=== PATIENT | female | born 1945 | race Caucasian/White ===

== ENCOUNTER 2019-09-03 10:52 | Outpatient (CLI) | payer MEDICARE, OTHER, SELFPAY ==
[2019-09-03 11:58] LABS: Add Urine Microscopic? YES; Appearance Urine Clear (Clear); Bilirubin Urine Negative (Negative); Blood Urine Negative (Negative); Color Urine Amber (Yellow); Glucose Urine UA 3+ mg/dL (Negative); Ketones Urine Negative (Negative); Leukocyte Esterase Ur Negative LEU/UL (Negative); Mucus Urine Rare /lpf; Nitrate Urine Positive (Negative); Protein Urine Negative (Negative); RBC Urine 0-2 /hpf (0-2); Specific Grav Ur 1.012 (1.001-1.035); Squamous Epithelial Cell Urine Few /hpf (Few)
== END 2019-09-03 10:53 | disposition home or self-care (01) ==
PROVIDERS: PCP Internal Medicine; Visit Provider Internal Medicine
DX: R30.0 Dysuria (principal)
CPT/HCPCS: 81001

== ENCOUNTER 2020-02-05 07:28 | Outpatient (CLI) | payer MEDICARE, OTHER, SELFPAY ==
[2020-02-05 08:08] LABS: Hemoglobin A1C 8.4 % (<5.7)
[2020-02-05 08:13] LABS: Alanine Aminotransferase 23 U/L (4-35); Alkaline Phosphatase 101 U/L (38-126); Anion Gap 9.2 mmol/L (7-16); Aspartate Amino Transferase 20 U/L (14-36); Bilirubin,Total 0.5 mg/dL (0.2-1.3); Blood Urea Nitrogen 15 mg/dL (7-17); Calcium 8.7 mg/dL (8.4-10.2); Carbon Dioxide 28 mmol/L (22-30); Chloride 105 mmol/L (98-107); Cholesterol 142 mg/dL (0-200); Estimated Glomerular Filt Rate > 60; Glucose 190 mg/dL (65-105); HDL Direct 44 mg/dL; Potassium 4.2 mmol/L (3.4-5.0); Sodium 138 mmol/L (137-145); Triglycerides 193 mg/dL (<150)
[2020-02-05 08:23] LABS: LDL Cholesterol Direct 65 mg/dL
[2020-02-05 08:45] LABS: Creatinine Urine 121.8 mg/dL
[2020-02-05 08:50] LABS: MALB Creatinine Ratio 17.6 mg/g (0-30); Microalbumin Urine Random 21.4 mg/L (0-16.7)
== END 2020-02-05 07:29 | disposition home or self-care (01) ==
LOC: ANHLAB 07:30
PROVIDERS: PCP Internal Medicine; Visit Provider Internal Medicine
DX: I10 Essential (primary) hypertension (principal); Z79.899 Other long term (current) drug therapy; E11.9 Type 2 diabetes mellitus without complications; Z79.4 Long term (current) use of insulin; E78.5 Hyperlipidemia, unspecified
CPT/HCPCS: 36415; 80053; 80061; 82043; 83036

== ENCOUNTER 2020-03-04 07:28 | Outpatient (CLI) | payer MEDICARE, OTHER, SELFPAY ==
--- NOTE | 2020-03-04 07:37 | ECHO_ITS ---
Patient Info Name: Eva Dupont Age: 75 years : 1945 Gender: Female Ht: 64 in Wt: 187 lbs BSA: 1.99 m2 HR: 85 bpm BP: 156 / 81 mmHg Heart Rhythm: Sinus Rhythm Technical Quality: Good Exam Date: 03/04/2020 7:49 AM Exam Location: [facility] Patient Status: Outpatient Admit Date: 03/04/2020 Staff Ordering Physician: Rambo Duarte DO Bobbin Painter: Óscar Carreon RDCS Attending Provider: Rambo Duarte DO Referring Physician: Felicia ONEIL; Exam Type: CA echo doppler color flow Study Info Indications 458.0 - Orthostatic hypotension Complete two-dimensional, color flow and Doppler transthoracic echocardiogram is performed. History/Risk Factors Orthostatic hypotension; murmur,. Summary 1. Complete two-dimensional, color flow and Doppler transthoracic echocardiogram is performed. 2. Left ventricular chamber dimension is normal. 3. Left ventricular systolic function is normal, estimated at 60-65%. 4. The left ventricular diastolic function is grade I diastolic dysfunction. 5. E/e' 7 is not elevated. 6. Right ventricular chamber dimension is mildly enlarged. Left Ventricle E/e' 7 is not elevated. Left ventricular chamber dimension is normal. Left ventricular systolic function is normal, estimated at 60-65%. The left ventricular diastolic function is grade I diastolic dysfunction. Right Ventricle Right ventricular chamber dimension is mildly enlarged. Right ventricular systolic function is normal. Left Atria Left atrial chamber dimension is normal. Right Atria Right atrial chamber dimension is normal. Aortic Valve The aortic valve is trileaflet. There is no aortic valve stenosis. There is no aortic valve regurgitation. Pulmonic Valve The pulmonic valve is not well visualized. There is no pulmonic regurgitation. Mitral Valve There is no mitral valve stenosis. There is no mitral valve regurgitation. Tricuspid Valve There is no tricuspid valve regurgitation. Pericardium/Pleural There is no pericardial effusion. Aorta The aortic root size at the sinus of Valsalva is normal. Left Ventricular Outflow Tract Name Value Normal LVOT 2D LVOT Diameter 2.1 cm LVOT Doppler LVOT Peak Gradient 2 mmHg LVOT Mean Gradient 1 mmHg LVOT VTI 18 cm LVOT VTI/AV VTI Ratio 0.8 LVOT Stroke Volume 61 ml LVOT CO 4.4 l/min LVOT CI 2.2 l/min/m2 Mitral Valve Name Value Normal MV Doppler MV Decel [place] 195 cm/s2 MV PHT 85 ms MV Area (PHT) 2.6 cm2 4.0-5.0 MV Diastolic Function
== END 2020-03-04 07:29 | disposition home or self-care (01) ==
LOC: ANHCARD 07:31
PROVIDERS: PCP Internal Medicine; Visit Provider Internal Medicine
DX: I95.1 Orthostatic hypotension (principal); R10.11 Right upper quadrant pain; I51.7 Cardiomegaly
CPT/HCPCS: 93306

== ENCOUNTER 2020-07-14 07:51 | Outpatient (CLI) | payer MEDICARE, OTHER, SELFPAY ==
[2020-07-14 08:27] LABS: Alanine Aminotransferase 22 U/L (4-35); Albumin Level 3.9 g/dL (3.5-5.1); Alkaline Phosphatase 83 U/L (38-126); Anion Gap 2 mmol/L (8-16); Aspartate Amino Transferase 21 U/L (14-36); Bilirubin,Total 0.6 mg/dL (0.2-1.3); Blood Urea Nitrogen 14 mg/dL (7-17); Calcium 8.7 mg/dL (8.4-10.2); Carbon Dioxide 31 mmol/L (22-30); Chloride 106 mmol/L (98-107); Cholesterol 149 mg/dL (0-200); Estimated Glomerular Filt Rate > 60; Glucose 130 mg/dL (65-105); HDL Direct 47 mg/dL; Potassium 4.1 mmol/L (3.4-5.0); Sodium 139 mmol/L (137-145); Triglycerides 226 mg/dL (<150)
[2020-07-14 08:38] LABS: LDL Cholesterol Direct 60 mg/dL
== END 2020-07-14 07:52 | disposition home or self-care (01) ==
PROVIDERS: PCP Internal Medicine; Visit Provider Internal Medicine
DX: E11.9 Type 2 diabetes mellitus without complications (principal); Z51.81 Encounter for therapeutic drug level monitoring; I10 Essential (primary) hypertension; Z79.4 Long term (current) use of insulin; E78.5 Hyperlipidemia, unspecified
CPT/HCPCS: 36415; 80053; 80061; 83036

== ENCOUNTER 2020-12-01 06:57 | Outpatient (CLI) | payer MEDICARE, SELFPAY ==
[2020-12-01 08:03] LABS: Alanine Aminotransferase 23 U/L (4-35); Albumin Level 4.3 g/dL (3.5-5.1); Alkaline Phosphatase 93 U/L (38-126); Anion Gap 8 mmol/L (8-16); Aspartate Amino Transferase 23 U/L (14-36); Bilirubin,Total 0.6 mg/dL (0.2-1.3); Blood Urea Nitrogen 15 mg/dL (7-17); Calcium 9.5 mg/dL (8.4-10.2); Carbon Dioxide 28 mmol/L (22-30); Chloride 104 mmol/L (98-107); Cholesterol 161 mg/dL (0-200); Estimated Glomerular Filt Rate > 60; Glucose 178 mg/dL (65-105); HDL Direct 49 mg/dL; Potassium 4.2 mmol/L (3.4-5.0); Sodium 140 mmol/L (137-145); Triglycerides 162 mg/dL (<150)
[2020-12-01 08:05] LABS: Hemoglobin A1C 8.1 % (<5.7)
[2020-12-01 08:14] LABS: LDL Cholesterol Direct 67 mg/dL
== END 2020-12-01 06:58 | disposition home or self-care (01) ==
PROVIDERS: PCP Internal Medicine; Visit Provider Nurse Practitioner
DX: E78.5 Hyperlipidemia, unspecified (principal); E11.9 Type 2 diabetes mellitus without complications; Z51.81 Encounter for therapeutic drug level monitoring; Z79.4 Long term (current) use of insulin
CPT/HCPCS: 36415; 80053; 80061; 83036

== ENCOUNTER 2021-06-02 07:07 | Outpatient (CLI) | payer MEDICARE, SELFPAY ==
[2021-06-02 08:02] LABS: Alanine Aminotransferase 24 U/L (4-35); Albumin Level 4.1 g/dL (3.5-5.1); Alkaline Phosphatase 92 U/L (38-126); Anion Gap 8 mmol/L (8-16); Aspartate Amino Transferase 23 U/L (14-36); Bilirubin,Total 0.6 mg/dL (0.2-1.3); Blood Urea Nitrogen 13 mg/dL (7-17); Calcium 9.3 mg/dL (8.4-10.2); Carbon Dioxide 27 mmol/L (22-30); Chloride 107 mmol/L (98-107); Cholesterol 141 mg/dL (0-200); Estimated Glomerular Filt Rate > 60; Glucose 136 mg/dL (65-110); HDL Direct 53 mg/dL; Potassium 4.3 mmol/L (3.4-5.0); Sodium 142 mmol/L (137-145); Triglycerides 175 mg/dL (<150)
[2021-06-02 08:13] LABS: LDL Cholesterol Direct 57 mg/dL
== END 2021-06-02 07:08 | disposition home or self-care (01) ==
PROVIDERS: PCP Internal Medicine; Visit Provider Nurse Practitioner
DX: E11.9 Type 2 diabetes mellitus without complications (principal); Z51.81 Encounter for therapeutic drug level monitoring; Z79.4 Long term (current) use of insulin; E78.2 Mixed hyperlipidemia
CPT/HCPCS: 36415; 80053; 80061; 83036

== ENCOUNTER → 2021-07-26 07:57 | Outpatient (CLI) | payer MEDICARE, SELFPAY ==
[2021-07-26 13:29] LABS: Influenza A QL RT-PCR Negative (Negative); Influenza B QL RT-PCR Negative (Negative); SARS-CoV-2 RNA PCR Negative
== END ==
PROVIDERS: PCP Internal Medicine; Visit Provider Internal Medicine
DX: R68.89 Other general symptoms and signs (principal); Z20.822 Contact with and (suspected) exposure to COVID-19
CPT/HCPCS: 87502; C9803; U0003; U0005

== ENCOUNTER 2021-10-13 07:00 | Outpatient (CLI) | payer MEDICARE, SELFPAY ==
[2021-10-13 07:45] LABS: Alanine Aminotransferase 20 U/L (4-35); Albumin Level 4.2 g/dL (3.5-5.1); Alkaline Phosphatase 91 U/L (38-126); Anion Gap 4 mmol/L (8-16); Aspartate Amino Transferase 22 U/L (14-36); Bilirubin,Total 0.5 mg/dL (0.2-1.3); Blood Urea Nitrogen 14 mg/dL (7-17); Calcium 8.8 mg/dL (8.4-10.2); Carbon Dioxide 27 mmol/L (22-30); Chloride 106 mmol/L (98-107); Cholesterol 161 mg/dL (0-200); Estimated Glomerular Filt Rate > 60; Glucose 137 mg/dL (65-110); HDL Direct 48 mg/dL; Potassium 4.2 mmol/L (3.4-5.0); Sodium 137 mmol/L (137-145); Triglycerides 150 mg/dL (<150)
[2021-10-13 07:48] LABS: Creatinine Urine 133.7 mg/dL
[2021-10-13 07:52] LABS: Hemoglobin A1C 7.2 % (<5.7)
[2021-10-13 07:54] LABS: MALB Creatinine Ratio 18.7 mg/g (0-30)
[2021-10-13 07:55] LABS: LDL Cholesterol Direct 66 mg/dL
== END 2021-10-13 07:01 | disposition home or self-care (01) ==
LOC: ANHLAB 07:02
PROVIDERS: PCP Internal Medicine; Visit Provider Internal Medicine
DX: E11.9 Type 2 diabetes mellitus without complications (principal); Z79.4 Long term (current) use of insulin; Z79.899 Other long term (current) drug therapy; I10 Essential (primary) hypertension; E78.5 Hyperlipidemia, unspecified
CPT/HCPCS: 36415; 80053; 80061; 82043; 83036

== ENCOUNTER 2022-04-20 07:10 | Outpatient (CLI) | payer MEDICARE, SELFPAY ==
[2022-04-20 08:15] LABS: Alanine Aminotransferase 32 U/L (6-35); Albumin Level 4.3 g/dL (3.5-5.1); Alkaline Phosphatase 95 U/L (38-126); Anion Gap 6 mmol/L (8-16); Aspartate Amino Transferase 26 U/L (14-36); Bilirubin,Total 0.6 mg/dL (0.2-1.3); Blood Urea Nitrogen 16 mg/dL (7-17); Carbon Dioxide 28 mmol/L (22-30); Chloride 105 mmol/L (98-107); Cholesterol 157 mg/dL (0-200); Estimated Glomerular Filt Rate > 60; Glucose 160 mg/dL (65-110); HDL Direct 53 mg/dL; Sodium 139 mmol/L (137-145); Triglycerides 184 mg/dL (<150)
[2022-04-20 08:26] LABS: LDL Cholesterol Direct 67 mg/dL
[2022-04-20 08:53] LABS: Hemoglobin A1C 8.3 % (<5.7)
== END 2022-04-20 07:11 | disposition home or self-care (01) ==
LOC: ANHLAB 07:13
PROVIDERS: PCP Internal Medicine; Visit Provider Internal Medicine
DX: I10 Essential (primary) hypertension (principal); E78.5 Hyperlipidemia, unspecified; E11.9 Type 2 diabetes mellitus without complications; Z79.899 Other long term (current) drug therapy; Z79.4 Long term (current) use of insulin
CPT/HCPCS: 36415; 80053; 80061; 83036

== ENCOUNTER 2022-10-27 06:53 | Outpatient (CLI) | payer MEDICARE, SELFPAY ==
[2022-10-27 07:39] LABS: Alanine Aminotransferase 26 U/L (6-35); Albumin Level 4.3 g/dL (3.5-5.1); Alkaline Phosphatase 92 U/L (38-126); Anion Gap 5 mmol/L (8-16); Aspartate Amino Transferase 22 U/L (14-36); Bilirubin,Total 0.7 mg/dL (0.2-1.3); Blood Urea Nitrogen 15 mg/dL (7-17); Calcium 8.7 mg/dL (8.4-10.2); Carbon Dioxide 29 mmol/L (22-30); Chloride 104 mmol/L (98-107); Cholesterol 139 mg/dL (0-200); Estimated Glomerular Filt Rate > 60; Glucose 136 mg/dL (65-110); HDL Direct 43 mg/dL; Potassium 4.1 mmol/L (3.4-5.0); Sodium 138 mmol/L (137-145); Triglycerides 188 mg/dL (<150)
[2022-10-27 07:43] LABS: Hemoglobin A1C 7.7 % (<5.7)
[2022-10-27 07:50] LABS: LDL Cholesterol Direct 56 mg/dL
== END 2022-10-27 06:54 | disposition home or self-care (01) ==
PROVIDERS: PCP Internal Medicine; Visit Provider Nurse Practitioner
DX: E78.5 Hyperlipidemia, unspecified (principal); E11.9 Type 2 diabetes mellitus without complications
CPT/HCPCS: 36415; 80053; 80061; 83036

== ENCOUNTER 2022-12-26 14:24 | Outpatient (CLI) | payer MEDICARE, SELFPAY ==
--- NOTE | ~2022-12-26 | DEXA_ITS ---
Bone Density Report Name: YOSVANY STARK Age: 77 Sex: Female Ethnicity: White Date of : 1945 Indication: osteopenia; parental hip fracture; hysterectomy; postmenopausal Referring Provider: DUANE STANLEY Study: Bone densitometry was performed. Exam Date: December 26, 2022 Accession number: [id number] Bone Density: Region BMD T-score Z-score Classification AP Spine(L1-L4) 0.962 -0.8 1.7 Normal Femoral Neck (Left) 0.567 -2.5 -0.4 Osteoporosis Total Hip (Left) 0.859 -0.7 1.2 Normal Femoral Neck (Right) 0.673 -1.6 0.6 Osteopenia Total Hip (Right) 0.891 -0.4 1.5 Normal Total Hip Mean 0.875 -0.6 1.4 Normal World Health Organization criteria for BMD impression classify patients as: Normal (T-score at or above -1.0), Osteopenia (T-score between -1.0 and -2.5), or Osteoporosis (T-score at or below -2.5). 10-year Fracture Risk: FRAX not reported because: Some T-score for Spine Total or Hip Total or Femoral Neck at or below -2.5 Previous Exams: Region Exam Age BMD T-score BMD Change BMD Change Date g/cm2 vs Baseline vs Previous AP Spine (L1-L4) 12/26/2022 77 0.962 -0.8 0.051 (5.6%)* 0.051 (5.6%)* 11/10/2014 69 0.911 -1.2 Total Hip(Left) 12/26/2022 77 0.859 -0.7 -0.049 (-5.4%) -0.049 (-5.4%) 11/10/2014 69 0.908 -0.3 Total Hip(Right) 12/26/2022 77 0.891 -0.4 -0.007 (-0.7%) -0.007 (-0.7%) 11/10/2014 69 0.897 -0.4 *Denotes significance at 95% confidence level, LSC for AP Spine = 0.022 g/cm2, LSC for Total Hip = 0.027 g/cm2 Clinical Information Provided by Patient: Parent has had a hip fracture Has the following medical conditions: Hysterectomy Patient maximum height was 64 Menopause Age: 41 No regular weight bearing exercise Onset of menses at age 15 Number of children 4 Impression: The patient has osteoporosis, based on the Left Femoral Neck T-score. The patient has risk factors, including: parental hip fracture. The BMD for the Total Hip(Left) decreased, changing by -5.4% since the last DXA exam. Discussion: INCREASED RISK OF FRACTURE. BONE DENSITY IS UNDESIRABLY LOW AT ONE OR MORE SKELETAL SITES, CONSISTENT WITH POSTMENOPAUSAL OSTEOPOROSIS. This patient's lowest T-score meets the World Health Organization's (WHO) criteria for osteoporosis at one or more sites (T-score -2.5 or below). In untreated patients, the risk of osteoporotic fracture increases approximately two-fold for each 1.0 SD decrease in T-score.
== END 2022-12-26 14:25 | disposition home or self-care (01) ==
LOC: ANHIMG 14:25
PROVIDERS: PCP Family Medicine; Visit Provider Family Medicine
DX: Z78.0 Asymptomatic menopausal state (principal); M81.0 Age-related osteoporosis without current pathological fracture; M85.851 Other specified disorders of bone density and structure, right thigh
CPT/HCPCS: 77080

== ENCOUNTER 2023-03-02 06:47 | Outpatient (CLI) | payer MEDICARE, SELFPAY ==
[2023-03-02 08:03] LABS: Alanine Aminotransferase 26 U/L (6-35); Albumin Level 4.2 g/dL (3.5-5.1); Alkaline Phosphatase 92 U/L (38-126); Anion Gap 5 mmol/L (8-16); Aspartate Amino Transferase 25 U/L (14-36); Bilirubin,Total 0.6 mg/dL (0.2-1.3); Blood Urea Nitrogen 15 mg/dL (7-17); Calcium 9.1 mg/dL (8.4-10.2); Carbon Dioxide 28 mmol/L (22-30); Chloride 105 mmol/L (98-107); Cholesterol 149 mg/dL (0-200); Estimated Glomerular Filt Rate > 60; Glucose 138 mg/dL (65-110); HDL Direct 46 mg/dL; Potassium 4.4 mmol/L (3.4-5.0); Sodium 138 mmol/L (137-145); Triglycerides 173 mg/dL (<150)
[2023-03-02 08:13] LABS: Hemoglobin A1C 7.5 % (<5.7)
[2023-03-02 08:15] LABS: LDL Cholesterol Direct 69 mg/dL
== END 2023-03-02 06:48 | disposition home or self-care (01) ==
PROVIDERS: PCP Nurse Practitioner; Visit Provider Nurse Practitioner
DX: E11.9 Type 2 diabetes mellitus without complications (principal); E78.5 Hyperlipidemia, unspecified
CPT/HCPCS: 36415; 80053; 80061; 83036

== ENCOUNTER 2023-03-23 15:55 | Outpatient (CLI) | payer MEDICARE, SELFPAY ==
--- NOTE | ~2023-03-23 | US_ITS ---
EXAMINATION: US carotid duplex BI DATE: 03/23/2023 17:08 INDICATION: Vision abnormalities. Vertigo. TECHNIQUE: Grayscale, color Doppler, and pulsed Doppler images of the cervical carotid arteries were obtained. The degree of vessel stenosis is placed in one of the following categories: normal, <50%, 5 0-69%, >=70% but less than near-occlusion, near-occlusion, or total occlusion. Note that percent sten osis relative to normal distal artery lumen diameter is indirectly measured from velocity measurement s as described by You, et al. Radiology 2003; 229:340-346. Notes: Normal: Peak systolic velocity <125 centimeters/sec and no plaque <50%. Peak systolic velocity <125 ( EDV <40; ICA/CCA PSV ratio <2.0; used these factors only a tandem lesions or low cardiac output or co ntralateral disease) 50-69 %: PSV 125-230 (EDV 40-100; ratio 2-4) >= 70% but less than near occlusion: PSV greater than 230 (EDV > 100; ratio> 4.0) Near Occlusion: PSV that is variable; markedly narrowed lumen Occlusion: Absent flow on color/spectral Doppler and no lumen on burton scale. COMPARISON: Ultrasound dated 09/21/2016 FINDINGS: RIGHT: The right common carotid artery (CCA) peak systolic velocity (PSV) is 76 cm/s. The right internal car otid artery (ICA) PSV is 94 cm/s. The right ICA end-diastolic velocity (EDV) is 22 cm/s. The right IC A/CCA PSV ratio is 1.2. The external carotid artery (ECA) PSV is 107 cm/s. There is antegrade flow in the right vertebral artery. LEFT: The left CCA PSV is 88 cm/s. The left ICA PSV is 103 cm/s. The left ICA EDV is 27 cm/s. The left ICA/ CCA PSV ratio is 1.2. The ECA PSV is 110 cm/s. There is antegrade flow in the left vertebral artery. IMPRESSION: 1. Less than 50% stenosis in the right internal carotid artery by sonographic criteria. 2. Less than 50% stenosis in the left internal carotid artery by sonographic criteria. Reviewed, dictated and finalized at location A. IMPRESSION: 1. Less than 50% stenosis in the right internal carotid artery by sonographic sammy trammell. 2. Less than 50% stenosis in the left internal carotid artery by sonographic haja omalley.
== END 2023-03-23 15:56 | disposition home or self-care (01) ==
PROVIDERS: PCP Family Medicine; Visit Provider Nurse Practitioner
DX: R09.89 Other specified symptoms and signs involving the circulatory and respiratory systems (principal); I65.23 Occlusion and stenosis of bilateral carotid arteries
CPT/HCPCS: 93880

== ENCOUNTER 2023-09-06 07:24 | Outpatient (CLI) | payer MEDICARE, SELFPAY ==
[2023-09-06 08:19] LABS: Alanine Aminotransferase 27 U/L (6-35); Albumin Level 4.1 g/dL (3.5-5.1); Alkaline Phosphatase 99 U/L (38-126); Anion Gap 2 mmol/L (8-16); Aspartate Amino Transferase 24 U/L (14-36); Bilirubin,Total 0.7 mg/dL (0.2-1.3); Blood Urea Nitrogen 16 mg/dL (7-17); Calcium 9.2 mg/dL (8.4-10.2); Carbon Dioxide 30 mmol/L (22-30); Chloride 106 mmol/L (98-107); Cholesterol 148 mg/dL (0-200); Estimated Glomerular Filt Rate > 60; Glucose 193 mg/dL (65-110); HDL Direct 47 mg/dL; Potassium 4.2 mmol/L (3.4-5.0); Sodium 138 mmol/L (137-145); Triglycerides 191 mg/dL (<150)
[2023-09-06 08:30] LABS: LDL Cholesterol Direct 74 mg/dL
[2023-09-06 09:34] LABS: Hemoglobin A1C 8.3 % (<5.7)
== END 2023-09-06 07:25 | disposition home or self-care (01) ==
LOC: ANHLAB 07:26
PROVIDERS: PCP Family Medicine; Visit Provider Nurse Practitioner
DX: E78.5 Hyperlipidemia, unspecified (principal); E11.9 Type 2 diabetes mellitus without complications
CPT/HCPCS: 36415; 80053; 80061; 83036

== ENCOUNTER 2023-11-15 11:00 | Outpatient (RCR) | payer MEDICARE, SELFPAY ==
--- NOTE | 2023-10-23 16:41 | OPREHPOC ---
Outpatient Therapy Plan of Care This is a Multidisciplinary Plan of Care that may contain components documented by all disciplines (PT, OT, and ST.) PT Problem 1 PT Problem #1 Knowledge Deficit PT Goal 1 Goal Pt will perform HEPs indep Target Visit 2 PT Problem 2 PT Problem #2 Pain PT Goal 1 Goal Pt will report pain rating of 1-2 at worst when performing standing and ambulation tasks. Target Visit 8 PT Problem 3 PT Problem #3 Impaired Strength PT Goal 1 Goal Pt will demonstrate 5/5 strength to BLE to improve safe mobility. Target Visit 8 PT Problem 4 PT Problem #4 Impaired Balance PT Goal 1 Goal Pt will demonstrate a score of 21/28 or more for the Tinetti Balance and Gait assessment to reduce risk for falls. Target Visit 8
--- NOTE | 2023-10-23 16:41 | PTOPEVAL1 ---
Assessment and note entered by Radha Juarez, PT Evaluation Information Assessment Status Evaluation Diagnosis L knee pain Onset Approx 6 months ago Subjective Information pt c/o feeling tightness to L knee increased with prolonged standing and walking, states starting to utilize rollator for walking since 2022. Rest, theraworks and tylenol for pain relief. States received cortisone shot on the L knee last week; no significant difference in pain before and after the injection. Reports feeling unstable on the knee feeling like it would buckle . Reported Pain Level Pain Score 5: Self Report Assessment PT Clinical Summary Pt presents with decreased mobility and impaired gait, difficulty with ambulation on uneven surfaces and stairs due to reports of pain to L knee which started approx 6 months ago, 2022. Reports needing to use the rollator when walking long distances. Skilled PT necessary to reduce pain and improve mobility and reduce risk for falls. Plan of Care Interventions Electrical Stimulation,Gait Training,Hot Pack/Cold Pack,Intermittent Compression,Patient/Caregiver Education,Therapeutic Activities,Therapeutic Exercise,Ultrasound PT Services Indicated Yes Treatment Frequency and 2x/week for 8 visits Duration These treatments will address the objective and functional deficits as defined above. The patient will be advanced safely and appropriately in order for the patient to progress towards his/her prior level of function. Additional exercises will be introduced and as well as a comprehensive home exercise program upon discharge, if needed, ?to ensure carryover of functional gains achieved in the clinic. This treatment plan has been reviewed and agreement upon by the patient.
--- NOTE | 2023-11-03 11:15 | PCPTNOTE ---
Patient called & cancelled scheduled appointment this date due to personal reasons. Will continue per POC.
--- NOTE | 2023-12-13 15:52 | PTOPDC ---
Assessment and note entered by Radha Juarez, PT Discharge Information Assessment Status Discharge - Pt Not Presen Diagnosis L knee Pain Onset Approx 6 months ago Subjective Information Pt reports feeling less to no pain today, slight dull ache to L knee with sit to stand transitions. States when she is tired , she feels the pain more. reports compliant with HEPs. Reported Pain Level Pain Score 0: Self Report Additional Pain Score Comments Pt denies any pain at rest, may have some discomfort when standing and walking but not as much as it used to be. Assessment PT Clinical Summary Pt reports significant improvement with pain intensity and mobility since participating in therapy. States she feels like she can continue doing the HEPs at home and be more mindful of her positioning and proper body mechanics to prevent flare up of pain. Skilled PT discontinued at this time. Plan of Care PT Services Indicated No
== END 2023-12-14 08:45 | disposition home or self-care (01) ==
LOC: ANHPT 11:00
PROVIDERS: PCP Nurse Practitioner; Visit Provider Orthopaedic Surgery
DX: M25.562 Pain in left knee (principal)
CPT/HCPCS: 97110; 97112; 97116; 97140; 97161; 97530

== ENCOUNTER 2024-02-02 13:38 | Outpatient (CLI) | payer MEDICARE, SELFPAY ==
--- NOTE | 2024-02-02 14:13 | ECG_ITS ---
Test Date: 2024-02-02 14:32:05 Measurements Intervals [place] Rate: 72 P: 46 IL: 153 QRS: -33 QRSD: 97 T: 45 QT: 380 QTc: 419 Interpretive Statements SINUS RHYTHM MARKED LEFT AXIS DEVIATION [QRS AXIS < -30] LOW QRS VOLTAGE IN PRECORDIAL LEADS [QRS DEFLECTION < 1.0 mV IN CHEST LEADS] POOR R-WAVE PROGRESSION ABNORMAL ECG No previous ECG available for comparison Electronically Signed On 02-02-2024 18:20:40 CDT by David Eugene M.D.
[2024-02-02 14:42] LABS: Basophils Absolute Auto 0.1 K/mm3 (0.0-0.1); Basophils Percent Auto 0.9 % (0.2-1.2); Eosinophils Absolute Auto 0.3 K/mm3 (0-0.3); Eosinophils Percent Auto 3.7 % (0-4.4); Hematocrit 44.5 % (37.0-47.0); Hemoglobin 14.8 g/dL (12.0-15.0); Immature Granulocyte Absolute 0.03 K/mm3 (0.00-0.031); Immature Granulocyte Percent A 0.3 % (0-0.5); Lymphocytes Absolute Auto 2.27 K/mm3 (0.9-3.2); Lymphocytes Percent Auto 24.6 % (18.3-44.2); Mean Corpuscular HGB Conc 33.3 g/dl (32-36); Mean Corpuscular Hemoglobin 31.9 pg (26-34); Mean Corpuscular Volume 95.9 fl (80-100); Mean Platelet Volume 10.8 fl (7.4-10.4); Monocytes Absolute Auto 0.9 K/mm3 (0.1-0.6); Monocytes Percent Auto 9.2 % (2.6-8.5); Neutrophils Absolute Auto 5.6 K/mm3 (1.3-6.7); Neutrophils Percent Auto 61.3 % (45.5-73.1); Platelet Count Result 207 k/mm3 (150-375); Red Blood Count 4.64 M/mm3 (4.2-5.4); Red Cell Distribution Width 12.5 % (11.5-14.5); White Blood Count 9.2 K/mm3 (4.5-10.0)
[2024-02-02 14:52] LABS: Urine Cotinine NEGATIVE
[2024-02-02 14:54] LABS: Albumin Level 4.6 g/dL (3.5-5.1)
[2024-02-02 14:55] LABS: INR 0.9; Prothrombin Time 12.6 Seconds (11.1-14.7)
[2024-02-02 14:56] LABS: Partial Thromboplastin Time 26.1 Seconds (22.3-36.8)
[2024-02-02 14:57] LABS: Anion Gap 8 mmol/L (4-12); Blood Urea Nitrogen 14 mg/dL (7-17); Calcium 9.1 mg/dL (8.4-10.2); Carbon Dioxide 28 mmol/L (22-30); Chloride 103 mmol/L (98-107); Estimated Glomerular Filt Rate > 60; Glucose 121 mg/dL (65-110); Potassium 3.9 mmol/L (3.4-5.0); Sodium 139 mmol/L (137-145)
[2024-02-02 15:00] LABS: Hemoglobin A1C 6.8 % (<5.7)
== END 2024-02-02 13:39 | disposition home or self-care (01) ==
LOC: ANHSURGERY 13:43
PROVIDERS: Anesthesiology; PCP Nurse Practitioner; Visit Provider Orthopaedic Surgery
DX: Z01.818 Encounter for other preprocedural examination (principal); M17.12 Unilateral primary osteoarthritis, left knee; N28.9 Disorder of kidney and ureter, unspecified; E11.9 Type 2 diabetes mellitus without complications; E78.2 Mixed hyperlipidemia; R94.31 Abnormal electrocardiogram [ECG] [EKG]; Z79.4 Long term (current) use of insulin
CPT/HCPCS: 36415; 80048; 80307; 82040; 83036; 85025; 85610; 85730; 86850; 86900; 86901; 93005

== ENCOUNTER 2024-02-14 00:54 | Day surgery (SDC) | payer MEDICARE, SELFPAY ==
--- NOTE | 2024-02-02 13:40 | PC.NURSE ---
Addendum entered by Zachery Kenyon RN 02/02/24 14:15: Discussed taking insulin night before but no insulin day of surgery and no other diabetic meds morning of surgery. Original Note: Report to the Outpatient Waiting Room, entrance under the green pavilion located off [facility], at time _0600_ on date _[id number]_. Planned Procedure Time: _0730_. Time changes happen often and if your time is changed the preop area will call you the afternoon before. - You and your visitor will be asked to self-screen and do not enter if you have any COVID symptoms. - A mask is optional within the hospital at this time. Patients may have clear liquids (water, carbonated beverages, clear teas, apple juice) until 3 hours prior to surgery with a maximum of 20 ounces. - No food from midnight until time of surgery Take the following medications with a SIP of water the morning of surgery: ____None DO NOT STOP ANY OF YOUR OTHER PRESCRIPTION MEDICATIONS PRIOR TO SURGERY ?EXCEPT THE FOLLOWING Medications to discontinue per physician ____None Date to take last dose Please no make-up, nail bulgarian, hairspray, perfume, deodorant, or body powder the day of surgery. No jewelry (including any body piercings) or valuables the day of surgery, leave them at home. Please take a shower or bath the night before, or the morning of, surgery with an antibacterial soap. Wear comfortable, loose fitting clothing. - Jewelry must be removed prior to entering the operating room. Rings and piercings that are not removed may be cut off. - The hospital will not accept responsibility for valuables. - Please leave all valuables, including medications, at home the day of surgery. If you are going home after surgery, a licensed truck driver must drive you home. - NO public transportation without another adult if you receive anesthesia. - We recommend that an adult stay with you for 24 hours following discharge. - We also recommend that you do not drive, make important decision, drink alcoholic beverages, or take any drugs that were not prescribed by your health care provider for at least 24 hours after your discharge time. Follow any additional instructions given to you from your surgeon. If you or anyone in your household have experienced Covid symptoms in the past week, please notify your surgeon or the nurse liaison at the phone number below for possible testing. Telephone instructions given to _Eva__and asked if any additional questions and then verbalized understanding. Patient advised to call surgeon office or pre surgery nurse liaison [phone] if any additional questions.
[2024-02-02 13:48] VITALS: BP 157/61; PULSE 79; RESP 16; TEMP 36.4; O2SAT 97; BMI 34.9
--- NOTE | 2024-02-08 08:00 | PM.IMHP ---
H&P: HPI History of Present Illness Date/Time: 02/08/24 08:00 Chief Complaint: Patient has osteoarthritis of the left knee. She has failed conservative treatment. She would like to consider knee replacement surgery at this point. Review of Systems Musculoskeletal: Musculoskeletal: Reports arthralgias, Reports joint swelling and Reports stiffness PMF Past Medical History Medical History BPPV (benign paroxysmal positional vertigo) Left knee pain Mixed hyperlipidemia Primary osteoarthritis involving multiple joints Type 2 diabetes mellitus without complication, with long-term current use of insulin Surgical History Surgical History Hx of cataract surgery Family History Family History (Updated 01/25/24 @ 11:19 by ULICES Anthony) Mother Patient's mother is Father Patient's father is Family history of malignant neoplasm of stomach Family history of diabetes mellitus in first degree relative Diabetes mellitus Sibling Acute myocardial infarction Heart disease Sibling Dementia Social History Social History (Updated 01/25/24 @ 11:20 by ULICES Anthony) Smoking status: Never smoker Second hand tobacco smoke exposure: Yes Alcohol intake: never Substance use: never Substance use type: does not use Do You Feel Safe in your Home?: Yes Lack of Transportation: No Lack of Food: Never True Current Housing: I Do Not Have Housing Concerned About Future Housing: No Difficulty Paying Gas/Electric Bills: No Difficulty Paying for Meds: No Currently Unemployed: No Education: High School Diploma/GED Difficulty w/ Childcare or Family Care: No Living arrangements: with family Occupation/Education: retired Additional occupation/education comments: [employer] Gender identity (if verbalized by the patient): Female Spiritual care concerns: No Meds Home Medications and Allergies Home Medications Medication Instructions Recorded Confirmed Type acetaminophen 500 mg tablet 500 mg PO ONCE PRN Pain 06/05/19 02/02/24 History (Tylenol Extra Strength) lisinopril 10 mg tablet 10 mg PO DAILY #90 tabs 08/07/23 02/02/24 Rx pravastatin 80 mg tablet 80 mg PO DAILY #90 tabs 09/18/23 02/02/24 Rx dapagliflozin propanediol 10 mg 10 mg PO DAILY #30 tabs 10/05/23 02/02/24 Rx tablet (Farxiga) insulin human U-100 NPH-regulr See Rx Instructions .Route 02/06/24 Rx 70-30 mix 100 unit/mL subcutaneous .COMPLEX #40 mL susp (Humulin 70/30 U-100 Insulin) rivaroxaban 10 mg tablet (Xarelto) 10 mg PO DAILY PE prophylaxis s/p 02/08/24 Rx joint replacement surgery 10 days #10 tabs Allergies Allergy/AdvReac Type Severity Reaction Status Date / Time Iodinated Contrast Media AdvReac Intermediate Rash Verified 02/06/24 11:21 Sulfa (Sulfonamide AdvReac Intermediate Other Verified 02/06/24 11:21 Antibiotics) Exam Narrative: On exam she has motion from about 5-110 degrees of her left knee. She has varus deformity. She has grinding crepitus and pain with any manipulation. She walks with an antalgic gait. Eyes: General: appearance normal, both eyes and all related structures Neck: Neck: supple Resp: Effort & Inspection: normal respiratory effort Cardio: Rate: regular rate Rhythm: regular rhythm Assessment and Plan Assessment and plan (1) Osteoarthritis of left knee: Code(s): M17.12 - Unilateral primary osteoarthritis, left knee Status: Acute Assessment and Plan: Patient has arthritis left knee. It has been unresponsive to conservative treatment today. And she is ready for knee replacement surgery. I discussed treatment options with her risks benefits limitations and alternatives in detail. Will proceed with total knee arthroplasty per her request. Call
--- NOTE | 2024-02-13 17:41 | WPDANESEPP ---
Anes - Eval Pre Procedure Procedure: Operation Date: 02/14/24 07:30 Proposed Procedures p Left Total Knee Arthroplasty - Alfa Lazaro MD Date/Time: 02/13/24 17:41 Pre Op Diagnosis: oa left knee Patient Data Age: 78 Gender: F Height: 1.63 m Weight: 92.5 kg Last Vital Signs Temp 36.4 C L 02/02/24 13:48 Pulse 79 02/02/24 13:48 Resp 16 02/02/24 13:48 BP 157/61 H 02/02/24 13:48 Pulse Ox 97 02/02/24 13:48 O2 Del Method Room Air 02/02/24 13:48 Allergies Allergy/AdvReac Type Severity Reaction Status Date / Time Iodinated Contrast Media AdvReac Intermediate Rash Verified 02/06/24 11:21 Sulfa (Sulfonamide AdvReac Intermediate Other Verified 02/06/24 11:21 Antibiotics) Home Medications Medication Instructions Recorded Confirmed Type acetaminophen 500 mg tablet 500 mg PO ONCE PRN Pain 06/05/19 02/02/24 History (Tylenol Extra Strength) lisinopril 10 mg tablet 10 mg PO DAILY #90 tabs 08/07/23 02/02/24 Rx pravastatin 80 mg tablet 80 mg PO DAILY #90 tabs 09/18/23 02/02/24 Rx dapagliflozin propanediol 10 mg 10 mg PO DAILY #30 tabs 10/05/23 02/02/24 Rx tablet (Farxiga) insulin human U-100 NPH-regulr See Rx Instructions .Route 02/06/24 02/12/24 Rx 70-30 mix 100 unit/mL subcutaneous .COMPLEX #40 mL susp (Humulin 70/30 U-100 Insulin) rivaroxaban 10 mg tablet (Xarelto) 10 mg PO DAILY PE prophylaxis s/p 02/08/24 Rx joint replacement surgery 10 days #10 tabs Patient hx anesthesia problems: none Family hx anesthesia problems: none Results Review: All pre-operative results and documents have been reviewed as part of the pre-operative evaluation. [facility] Past Medical History Medical History (Updated 02/13/24 @ 17:42 by Theodora Lea CRNA) BPPV (benign paroxysmal positional vertigo) Cardiac murmur Essential (primary) hypertension Left knee pain Mixed hyperlipidemia Orthostatic hypotension Primary osteoarthritis involving multiple joints Primary osteoarthritis of both knees Type 2 diabetes mellitus without complication, with long-term current use of insulin Vertigo Surgical History Surgical History Hx of cataract surgery Family History Family History (Updated 01/25/24 @ 11:19 by ULICES Anthony) Mother Patient's mother is Father Patient's father is Family history of malignant neoplasm of stomach Family history of diabetes mellitus in first degree relative Diabetes mellitus Sibling Acute myocardial infarction Heart disease Sibling Dementia Social History Social History (Updated 01/25/24 @ 11:20 by ULICES Anhtony) Smoking status: Never smoker Second hand tobacco smoke exposure: Yes Alcohol intake: never Substance use: never Substance use type: does not use Do You Feel Safe in your Home?: Yes Lack of Transportation: No Lack of Food: Never True Current Housing: I Do Not Have Housing Concerned About Future Housing: No Difficulty Paying Gas/Electric Bills: No Difficulty Paying for Meds: No Currently Unemployed: No Education: High School Diploma/GED Difficulty w/ Childcare or Family Care: No Living arrangements: with family Occupation/Education: retired Additional occupation/education comments: [employer] Gender identity (if verbalized by the patient): Female Spiritual care concerns: No Exam Day of Procedure 02/13/24 17:41
[2024-02-14] VITALS (14 sets, daily range): BP systolic 135–174; BP diastolic 53–97; PULSE 84–97; RESP 14–18; TEMP 35.6–36.3; O2SAT 91–99; BMI 34.4; BMI 38.0
--- NOTE | ~2024-02-14 | XR_ITS ---
EXAMINATION: [id number] DATE: 02/14/2024 09:41 INDICATION: Total left knee arthroplasty. Postop. TECHNIQUE: 2 views of left knee were obtained. COMPARISON: None. FINDINGS: There is a total left knee arthroplasty with patellar resurfacing in near-anatomic alignmen t. No fracture. There is gas in the knee joint and soft tissues, consistent with recent surgery. Ante rior skin domingo are noted. IMPRESSION: 1. Total left knee arthroplasty in near-anatomic alignment. Reviewed, dictated and finalized at location A.
[2024-02-14] MEDS: LACTATED RINGERS 1,000 ML 30 ML IV CONT ×2 (06:15→09:21)
[2024-02-14 06:18] LABS: Glucose Point of Care 145 mg/dl (65-105)
[2024-02-14] MEDS: ACETAMINOPHEN 500 MG TABLET 1000 MG PO (06:18)
[2024-02-14] MEDS: TRANEXAMIC ACID 1,000MG/ISO100 1,000 MG/100 ML BAG 200 MG IVPB (06:19)
[2024-02-14] MEDS: VANCOMYCIN 1,500 MG/NS 500 ML BAG 250 MG IVPB (06:25)
--- NOTE | 2024-02-14 06:39 | WPDHPUPDATE1 ---
History and Physical Update Update Date/Time: 02/14/24 06:39 History and Physical has been reviewed, including an updated exam of the patient. There are NO changes in the patient's condition. Risks, benefits, and alternatives have been discussed and questions answered. Patient agrees to proceed with procedure.
--- NOTE | 2024-02-14 07:09 | WPDANESEPPF ---
Anes - Initial Pre Proc Eval Procedure: Operation Date: 02/14/24 07:30 Proposed Procedures p Left Total Knee Arthroplasty - Alfa Lazaro MD Date/Time: 02/14/24 07:09 Surgeon: Alfa Lazaro MD Pre Op Diagnosis: oa left knee Patient Data Age: 78 Gender: F Height: 1.63 m Weight: 91.2 kg Last Vital Signs Temp 97.0 F L 02/14/24 06:40 Pulse 84 02/14/24 06:40 Resp 18 02/14/24 06:40 BP 174/55 H 02/14/24 06:40 Pulse Ox 98 02/14/24 06:40 O2 Del Method Room Air 02/14/24 06:40 Allergies Allergy/AdvReac Type Severity Reaction Status Date / Time Iodinated Contrast Media AdvReac Intermediate Rash Verified 02/14/24 06:17 Sulfa (Sulfonamide AdvReac Intermediate Other Verified 02/14/24 06:17 Antibiotics) Home Medications Medication Instructions Recorded Confirmed Type acetaminophen 500 mg tablet 500 mg PO ONCE PRN Pain 06/05/19 02/14/24 History (Tylenol Extra Strength) lisinopril 10 mg tablet 10 mg PO DAILY #90 tabs 08/07/23 02/02/24 Rx pravastatin 80 mg tablet 80 mg PO DAILY #90 tabs 09/18/23 02/02/24 Rx dapagliflozin propanediol 10 mg 10 mg PO DAILY #30 tabs 10/05/23 02/02/24 Rx tablet (Farxiga) insulin human U-100 NPH-regulr See Rx Instructions .Route 02/06/24 02/12/24 Rx 70-30 mix 100 unit/mL subcutaneous .COMPLEX #40 mL susp (Humulin 70/30 U-100 Insulin) rivaroxaban 10 mg tablet (Xarelto) 10 mg PO DAILY PE prophylaxis s/p 02/08/24 Rx joint replacement surgery 10 days #10 tabs Laboratory Tests 02/14/24 06:16 POC Capillary Glucose 145 H mg/dl (65-105) Patient hx anesthesia problems: none Family hx anesthesia problems: none Results Review: All pre-operative results and documents have been reviewed as part of the pre-operative evaluation. [facility] Past Medical History Medical History (Updated 02/13/24 @ 17:42 by Theodora Lea CRNA) BPPV (benign paroxysmal positional vertigo) Cardiac murmur Essential (primary) hypertension Left knee pain Mixed hyperlipidemia Orthostatic hypotension Primary osteoarthritis involving multiple joints Primary osteoarthritis of both knees Type 2 diabetes mellitus without complication, with long-term current use of insulin Vertigo Surgical History Surgical History Hx of cataract surgery Family History Family History (Updated 01/25/24 @ 11:19 by ULICES Anthony) Mother Patient's mother is Father Patient's father is Family history of malignant neoplasm of stomach Family history of diabetes mellitus in first degree relative Diabetes mellitus Sibling Acute myocardial infarction Heart disease Sibling Dementia Social History Social History (Updated 01/25/24 @ 11:20 by ULICES Anthony) Smoking status: Never smoker Second hand tobacco smoke exposure: Yes Alcohol intake: never Substance use: never Substance use type: does not use Do You Feel Safe in your Home?: Yes Lack of Transportation: No Lack of Food: Never True Current Housing: I Do Not Have Housing Concerned About Future Housing: No Difficulty Paying Gas/Electric Bills: No Difficulty Paying for Meds: No Currently Unemployed: No Education: High School Diploma/GED Difficulty w/ Childcare or Family Care: No Living arrangements: with family Occupation/Education: retired Additional occupation/education comments: [employer] Gender identity (if verbalized by the patient): Female Spiritual care concerns: No Anes - Eval Final PreProcedure Day of Procedure 02/14/24 07:09 Patient weight: obese Heart: regular rate and rhythm Lungs: clear to auscultation Airway: Mallampati scale class II and special considerations (Pt missing several, partial plate. ) Neurological: alert and oriented Last oral intake: >/= 8 hours ASA classification: III Emergent: no Anesthetic plan: proceed
[2024-02-14] MEDS: ceFAZolin 2 GM/D5W 50 ML 2 GM/50 ML BAG IVPB ×3 (07:28→21:35)
[2024-02-14] MEDS: SODIUM CHLORIDE 0.9% IV 37.7 ML, MORPHINE SULFATE INJ (*CRX) 2 MG, ROPivacaine HCL 1% 2... INFILTRATE (08:24)
--- NOTE | 2024-02-14 09:02 | W.PM.PROC2 ---
Procedure Note - Detailed Date of Procedure 02/14/24 Pre-op Diagnosis Osteoarthritis LEFT knee Post-op Diagnosis Same Procedure Performed LEFT total knee arthroplasty Surgeon Alfa Lazaro MD [employer] Brenden Anesthesia General Indications Pain and Arthritis Description of Procedure The patient was brought to operating room #7. A general anesthetic was administered. Placed on the operating table and sterilely prepped and draped in usual manner. A longitudinal incision was made. Tourniquet inflated to 300 mmHg for a total of 52 minutes. Dissection was carried down to the fascia. Medial parapatellar incision was made and the patella subluxated laterally. Patella cut from 23 to 14 mm and sized for a 34 mm button. The tibia was cut perpendicular to the long axis and femur cut in 5 degrees of valgus. A 62.5 femur trialed. 63 tibia was felt to fit the best. The soft tissues balanced, hemostasis obtained. All [address], 63 tibia, 62.5 femur, 34 mm patella, and 11AS mm poly. Motion was 0-125 degrees with good stability in both flexion and extension. The wound was closed with #2 Vicryl, 2-0 Vicryl and domingo. [employer]plants [employer] Estimated Blood Loss 200 Drains No Packing No Pathology None sent Complications No immediate complications Condition Stable Disposition PACU [facility] Billing Surgery - Charge Forward: Surgery Billing ([id number] Total Knee)
[2024-02-14 09:26] LABS: Glucose Point of Care 185 mg/dl (65-105)
[2024-02-14] MEDS: fentaNYL CITRATE INJ (*CRX) 100 MCG/2 ML VIAL 25 MCG IV PUSH ×4 (09:29→09:54)
--- NOTE | 2024-02-14 10:30 | PC.NURSE ---
This patient, Eva Dupont, was admitted to [address] [place] [address] Room 300-01. Patient/family oriented to hospital policies and general routines including ID bracelet, bed and alarms, visiting hours, pain management, procedures, bathroom and other care routines, personal items, smoking policy, room service/diet, and visiting hours. Information on how to activate the Rapid Response Team has been discussed. Patient/Family are encouraged to report perceived risks to care and to ask questions if they do not understand what they are told or what they should do.
[2024-02-14] MEDS: HYDROcodone/acetaminophen (*CRX) 7.5-325 MG TABLET 1 TAB PO ×3 (11:24→20:48)
[2024-02-14 11:26] LABS: Glucose Point of Care 215 mg/dl (65-105)
--- NOTE | 2024-02-14 11:56 | PC.NURSE ---
Patient arrived on floor at 1045
[2024-02-14] MEDS: HYDROmorphone HCL INJ (*CRX) 1 MG/ML SYR 0.5 MG IV PUSH (13:16)
[2024-02-14] MEDS: ONDANSETRON INJ 4 MG/2 ML VIAL IV PUSH (13:24)
--- NOTE | 2024-02-14 13:39 | PM.IMCN ---
Assessment and Plan Assessment and plan (1) Primary osteoarthritis of both knees: Code(s): M17.0 - Bilateral primary osteoarthritis of knee Status: Acute Assessment and Plan: Patient underwent a total left knee arthroplasty on 02/13 with Tejas STEWART. - ambulate with assistance and up to chair - use IS - neurovasc checks - see order for intervals - SCDs - resume diet - pain management p.r.n. for discomfort and zofran PRN for nausea - monitor labs in AM - CBC and BMP - bowel regimen: docusate/senna, polyethylene glycol - maintenance fluids: NS 125 mL/hr x8 hrs - prophylactic abx - Ancef - PT/OT (2) Type 2 diabetes mellitus without complication, with long-term current use of insulin: Code(s): E11.9 - Type 2 diabetes mellitus without complications; Z79.4 - half-way (current) use of insulin Status: Acute Assessment and Plan: - hypoglycemia protocol - POC blood glucose ACHS - home medication: Continue Jardiance. insulin 70/30, 84u AM and 42u PM, reduced by 20% -> 68u AM and 34u PM, due to current nausea/reduced PO and concern for lows at night. - correct regimen ordered - high dose TIDWM - A1C 6.8% on 02/02/2024 - daughter requesting clinical systems educator consultation, ordered - will need reminder at d/c to make follow-up appt with PCP for further DM management - trend glucose tomorrow until d/c to determine if reduced insulin is appropriate. - spot glucose checks at 12:00 am and 5:00 am, patient concerned she has been running low at night due to waking in the morning diaphoretic. (3) Essential (primary) hypertension: Code(s): I10 - Essential (primary) hypertension Status: Acute Assessment and Plan: - chronic, currently 145/60 - continue home medications: Lisinopril 10 mg daily - monitor Plan Patient underwent a total left knee arthroplasty today on 02/14/2024 with Tejas STEWART. PT/OT ordered. Monitor glucose levels and blood pressure postoperatively. Anticipate discharge tomorrow. Requesting reminder in discharge paperwork to follow-up with her PCP for further diabetes management. Currently reducing insulin 70/30 doses by 20% due to current nausea/reduced p.o. intake and concern for lows at night. Planned spot check of glucose at midnight and 5:00 a.m. Diet: Diabetic GI Prophylaxis: Not currently indicated DVT Prophylaxis: SCDs, RITA, Xarelto Lines: Peripheral Code Status: Full code HPI Date of Consult Consult date: 02/14/24 Requesting Physician: Alfa Lazaro MD Primary Care Provider: Javed Mckeon APRN Consult Narrative Reason for consult: Medical Managment Narrative: 78 y/o F presents here for surgical management of her osteoarthritis of the left knee with PMH of BPPV, HLD, osteoarthritis, and type 2 diabetes. The patient presents here for surgical management of her osteoarthritis of the left knee. She has previously failed conservative treatments including steroid injections, PT, and NSAIDs. Last cortisone injection in last week of October or early December of 2023. Due to interference with her ADLs (unable to walk long distances, stairs), patient elected to move forward with surgical management. She underwent a left total knee arthroplasty on 02/13. She reports no recent changes in her medical history. She denies any recent changes in her home medications. Postoperatively she reports nausea and odd sensation to left foot, further described as feeling like the bottom of her foot is very thick. Pain currently managed. Patient does voice concerns about glucose running low at night, intermittently will wake up diaphoretic. Preop workup: 97.5? F, HR 79, 157/61, and 97% on RA. Preop VS: No anemia, no leukocytosis, normal coags, no significant electrolyte derangements, creatinine 0.8 and GFR >60, A1c 6.8%. Review of Systems Review of Systems: All systems reviewed & are unremarkable except as noted in HPI and below PMFSH Past Medical H
[2024-02-14] MEDS: INSULIN ASPART (*BKC) 100 UNITS/ML SUB-Q ×2 (14:52→18:18)
[2024-02-14 15:03] LABS: Glucose Point of Care 241 mg/dl (65-105)
--- NOTE | 2024-02-14 16:18 | PCPTNOTE ---
On 02/14/24, the student, [Svitlana Hart], provided care and completed [facility] documentation on this patient. I have reviewed the student's documentation and agree with the findings.
[2024-02-14 16:32] LABS: Glucose Point of Care 221 mg/dl (65-105)
[2024-02-14] MEDS: CELECOXIB 200 MG CAPSULE PO (17:03)
[2024-02-14] MEDS: SENNA/DOCUSATE SODIUM TABLET 2 TAB PO (17:04)
[2024-02-14] MEDS: RIVAROXABAN 10 MG TABLET PO (17:05)
[2024-02-14] MEDS: INSULIN HUMAN ISOPHAN/REGULAR 70/30 (*BKC) 100 UNITS/ML 34 UNITS SUB-Q (17:06)
[2024-02-14 18:17] LABS: Glucose Point of Care 275 mg/dl (65-105)
[2024-02-14] MEDS: FAMOTIDINE 20 MG TABLET PO (20:48)
[2024-02-14 21:43] LABS: Glucose Point of Care 249 mg/dl (65-105)
[2024-02-15 00:09] LABS: Glucose Point of Care 211 mg/dl (65-105)
[2024-02-15 00:12] VITALS: BP 133/50; PULSE 86; RESP 14; TEMP 35.9; O2SAT 95
[2024-02-15] MEDS: HYDROcodone/acetaminophen (*CRX) 7.5-325 MG TABLET 1 TAB PO ×4 (01:07→15:11)
[2024-02-15 04:12] VITALS: BP 122/59; PULSE 81; RESP 14; TEMP 36.1; O2SAT 94
[2024-02-15] MEDS: ceFAZolin 2 GM/D5W 50 ML 2 GM/50 ML BAG IVPB (06:11)
[2024-02-15 06:31] VITALS: BP 134/62; PULSE 86; RESP 14; TEMP 35.7; O2SAT 96
[2024-02-15 06:32] LABS: Glucose Point of Care 171 mg/dl (65-105)
[2024-02-15 06:44] LABS: Basophils Absolute Auto 0.1 K/mm3 (0.0-0.1); Basophils Percent Auto 0.6 % (0.2-1.2); Eosinophils Percent Auto 0.3 % (0-4.4); Hematocrit 40.9 % (37.0-47.0); Hemoglobin 13.3 g/dL (12.0-15.0); Immature Granulocyte Absolute 0.05 K/mm3 (0.00-0.031); Immature Granulocyte Percent A 0.4 % (0-0.5); Lymphocytes Absolute Auto 2.31 K/mm3 (0.9-3.2); Mean Corpuscular HGB Conc 32.5 g/dl (32-36); Mean Corpuscular Hemoglobin 31.7 pg (26-34); Mean Corpuscular Volume 97.4 fl (80-100); Mean Platelet Volume 11.1 fl (7.4-10.4); Monocytes Percent Auto 16.1 % (2.6-8.5); Neutrophils Absolute Auto 7.7 K/mm3 (1.3-6.7); Neutrophils Percent Auto 63.6 % (45.5-73.1); Platelet Count Result 243 k/mm3 (150-375); Red Cell Distribution Width 12.7 % (11.5-14.5); White Blood Count 12.2 K/mm3 (4.5-10.0)
[2024-02-15 06:58] LABS: Anion Gap 7 mmol/L (4-12); Blood Urea Nitrogen 18 mg/dL (7-17); Calcium 8.9 mg/dL (8.4-10.2); Carbon Dioxide 27 mmol/L (22-30); Chloride 104 mmol/L (98-107); Estimated CRCL calculation 59 ml/min; Estimated Glomerular Filt Rate > 60; Glucose 174 mg/dL (65-110); Potassium 4.1 mmol/L (3.4-5.0); Sodium 138 mmol/L (137-145)
--- NOTE | 2024-02-15 06:58 | PM.PNORT ---
Progress Note: A&P Assessment and Plan (1) History of knee replacement procedure of left knee: Code(s): Z96.652 - Presence of left artificial knee joint Status: Acute Assessment and Plan: Patient underwent total knee replacement left knee for osteoarthritis. She has done well postoperatively and be dismissed home. I will see her back in the office in 2 weeks. Subjective Subjective Date/Time Seen: 02/15/24 06:58 Principal diagnosis: Patient underwent left knee replacement for left knee osteoarthritis. Review of Systems Musculoskeletal: Musculoskeletal: Reports arthralgias, Reports joint swelling and Reports stiffness Exam Narrative: On exam today the patient wiggles her toes well as up ambulatory. Her dressing is intact. Overall she is able to walk with a walker. Objective Data Vital Signs Vital Signs: Vital Signs - 24 hr 02/14/24 09:21 02/14/24 09:35 02/14/24 09:50 Temperature 97.1 F L Pulse Rate 97 89 87 Respiratory Rate 15 14 16 Blood Pressure 141/53 H 148/59 H 148/59 H Pulse Oximetry 97 99 95 Oxygen Delivery Simple Face Mask Simple Face Mask Room Air Oxygen Flow Rate 8 8 02/14/24 10:05 02/14/24 10:20 02/14/24 10:26 Temperature 97.4 F L Pulse Rate 96 85 88 Respiratory Rate 17 16 16 Blood Pressure 135/57 L 139/74 150/57 H Pulse Oximetry 96 95 97 Oxygen Delivery Nasal Cannula Nasal Cannula Nasal Cannula Oxygen Flow Rate 2 2 2 02/14/24 10:50 02/14/24 11:05 02/14/24 11:35 Temperature 96.7 F L 96.5 F L 96.0 F L Pulse Rate 88 86 92 Respiratory Rate 18 16 18 Blood Pressure 139/57 L 140/97 H 136/55 L Pulse Oximetry 96 95 97 Oxygen Delivery Oxygen Flow Rate 02/14/24 12:52 02/14/24 12:35 02/14/24 16:12 Temperature 96.3 F L 96.7 F L Pulse Rate 90 88 Respiratory Rate 16 18 Blood Pressure 145/60 H 145/67 H Pulse Oximetry 94 91 Oxygen Delivery Room Air Oxygen Flow Rate 02/14/24 20:12 02/14/24 20:00 02/15/24 00:12 Temperature 96.8 F L 96.7 F L Pulse Rate 93 86 Respiratory Rate 16 14 Blood Pressure 136/54 L 133/50 L Pulse Oximetry 93 95 Oxygen Delivery Room Air Oxygen Flow Rate 02/15/24 04:12 02/15/24 06:31 Temperature 96.9 F L 96.3 F L Pulse Rate 81 86 Respiratory Rate 14 14 Blood Pressure 122/59 L 134/62 Pulse Oximetry 94 96 Oxygen Delivery Oxygen Flow Rate Intake/Output Intake/Output: Intake & Output 02/12/24 02/13/24 02/14/24 02/15/24 23:59 23:59 23:59 23:59 Intake Total 540 300 Output Total 300 400 Balance 240 -100 Meds/Results Medications: Active Medications Generic Name Dose Route Start Last Admin Trade Name Freq PRN Reason Stop Dose Admin Hydrocodone Bitart/Acetaminophen 1 tab 02/14/24 10:27 Hydrocodone/Acetaminophen (*Crx) 5-325 Mg Tablet PO Q4H PRN Pain Rated 4-6 Hydrocodone Bitart/Acetaminophen 1 tab 02/14/24 10:27 02/15/24 06:10 Hydrocodone/Acetaminophen (*Crx) 7.5-325 Mg Tablet PO 1 tab Q4H PRN Administration Pain Rated 7-10 Celecoxib 200 mg 02/14/24 17:00 02/14/24 17:03 Celecoxib 200 Mg Capsule PO 200 mg BIDWM LAKESHA Administration Cyclobenzaprine HCl 10 mg 02/14/24 10:27 Cyclobenzaprine Hcl 10 Mg Tablet PO Q8H PRN Spasms Dextrose 12.5 gm 02/14/24 13:47 Dextrose 50% 25 Gm/50 Ml Syringe IV PUSH PRN PRN Hypoglycemia Protocol Diphenhydramine HCl 25 mg 02/14/24 10:27 Diphenhydramine Hcl Inj 50 Mg/Ml Vial IV PUSH Q6H PRN Itching Empagliflozin 25 mg 02/15/24 09:00 Empagliflozin 25 Mg Tablet PO 03/16/24 08:59 DAILY LAKESHA Famotidine 20 mg 02/14/24 21:00 02/14/24 20:48 Famotidine 20 Mg Tablet PO 20 mg Q12HR LAKESHA Administration Glucagon 1 mg 02/14/24 13:47 Glucagon For Inj 1 Mg Vial IM PRN PRN Hypoglycemia Protocol Glucose 15 gm 02/14/24 13:47 Glucose Oral Gel 15 Gm Of Glucse In 37.5 Gm Tube PO PRN PRN Hypoglycemia Protocol
--- NOTE | 2024-02-15 07:00 | PM.DS ---
DS: Admitting Diagnosis Discharge Date 02/15/2024 Admitting Diagnosis Left knee osteoarthritis DS: Discharge Diagnosis Discharge Diagnosis (1) History of knee replacement procedure of left knee: Code(s): Z96.652 - Presence of left artificial knee joint Status: Acute Assessment and Plan: Patient underwent total knee arthroplasty on the left for osteoarthritis. She has done well at this time. DS: Summary Hospital Course Hospital Course: Patient underwent total knee arthroplasty the left knee for osteoarthritis. She has progressed reasonably well at this time. She is weight-bearing and going to the bathroom. She uses a walker. I think she can be dismissed at this time. Follow up 10 to 14 days for sutures out. Status at Discharge Functional status at discharge: uses cane/walker Time Spent with Patient Time attestation: Total time spent providing and/or coordinating discharge services: Exam Narrative: On exam she can wiggle her toes. Neurologically she appears to be intact. Her dressing is intact. DS: Data Data Completed and Pending Labs on day of discharge: Labs from last 24 hours 02/15/24 02/15/24 02/14/24 05:30 05:13 23:44 WBC 12.2 H RBC 4.20 Hgb 13.3 Hct 40.9 MCV 97.4 MCH 31.7 MCHC 32.5 RDW 12.7 Plt Count 243 MPV 11.1 H Immature Gran % (Auto) 0.4 Neut % (Auto) 63.6 Lymph % (Auto) 19.0 [place] % (Auto) 16.1 H Eos % (Auto) 0.3 Baso % (Auto) 0.6 Lymph # (Auto) 2.31 [place] # (Auto) 2.0 H Eos # (Auto) 0.0 Baso # (Auto) 0.1 Abs Immat Gran (auto) 0.05 H Absolute Neuts (auto) 7.7 H Absolute Nucleated RBC 0.000 Nucleated RBC % 0.0 Sodium 138 Potassium 4.1 Chloride 104 Carbon Dioxide 27 Anion Gap 7 BUN 18 H Creatinine 0.80 Estim Creat Clear Calc 59 Estimated GFR > 60 Glucose 174 H POC Capillary Glucose 171 H 211 H Calcium 8.9 02/14/24 02/14/24 02/14/24 19:56 18:14 16:27 WBC RBC Hgb Hct MCV MCH MCHC RDW Plt Count MPV Immature Gran % (Auto) Neut % (Auto) Lymph % (Auto) [place] % (Auto) Eos % (Auto) Baso % (Auto) Lymph # (Auto) [place] # (Auto) Eos # (Auto) Baso # (Auto) Abs Immat Gran (auto) Absolute Neuts (auto) Absolute Nucleated RBC Nucleated RBC % Sodium Potassium Chloride Carbon Dioxide Anion Gap BUN Creatinine Estim Creat Clear Calc Estimated GFR Glucose POC Capillary Glucose 249 H 275 H 221 H Calcium 02/14/24 02/14/24 02/14/24 14:51 11:24 09:24 WBC RBC Hgb Hct MCV MCH MCHC RDW Plt Count MPV Immature Gran % (Auto) Neut % (Auto) Lymph % (Auto) [place] % (Auto) Eos % (Auto) Baso % (Auto) Lymph # (Auto) [place] # (Auto) Eos # (Auto) Baso # (Auto) Abs Immat Gran (auto) Absolute Neuts (auto) Absolute Nucleated RBC Nucleated RBC % Sodium Potassium Chloride Carbon Dioxide Anion Gap BUN Creatinine Estim Creat Clear Calc Estimated GFR Glucose POC Capillary Glucose 241 H 215 H 185 H Calcium Discharge Plan Discharge Patient Disposition: Home, Self-Care Discharge Instructions: Dr. Alfa Lazaro M.D [address] [address] POST-OPERATIVE DISCHARGE INSTRUCTIONS TOTAL KNEE ARTHROPLASTY 1. When resting, do not rest in the chair.When resting, lie on your back, with back flat on the couch or bed, with leg elevated above heart to minimize swelling. You may put a pillow under your head. . Significant swelling could indicate a blood clot and if this occurs call the office (or go to the ER) to have a venous ultrasound. Therefore, do not rest in a chair. 2. At least five times a day spend several minutes stretching your knee into flexion while sitting in the chair and also stret
[2024-02-15 07:39] LABS: Glucose Point of Care 171 mg/dl (65-105)
[2024-02-15 08:00] VITALS: BP 129/55; PULSE 78; RESP 18; TEMP 36.4; O2SAT 95
[2024-02-15] MEDS: polyethylene glycoL 3350 17 GM POWD.PACK PO (09:32)
[2024-02-15] MEDS: CELECOXIB 200 MG CAPSULE PO (09:32)
[2024-02-15] MEDS: PRAVASTATIN SODIUM 20 MG TABLET 80 MG PO (09:32)
[2024-02-15] MEDS: SENNA/DOCUSATE SODIUM TABLET 2 TAB PO (09:32)
[2024-02-15] MEDS: lisinopriL 10 MG TABLET PO (09:33)
[2024-02-15] MEDS: FAMOTIDINE 20 MG TABLET PO (09:33)
[2024-02-15] MEDS: INSULIN HUMAN ISOPHAN/REGULAR 70/30 (*BKC) 100 UNITS/ML 68 UNITS SUB-Q (09:33)
[2024-02-15] MEDS: EMPAGLIFLOZIN 25 MG TABLET PO (09:33)
[2024-02-15] MEDS: CYCLOBENZAPRINE HCL 10 MG TABLET PO (09:39)
[2024-02-15 11:34] LABS: Glucose Point of Care 206 mg/dl (65-105)
[2024-02-15 12:12] VITALS: BP 134/47; PULSE 87; RESP 18; TEMP 36.1; O2SAT 97
[2024-02-15] MEDS: INSULIN ASPART (*BKC) 100 UNITS/ML SUB-Q (12:41)
--- NOTE | 2024-02-15 14:35 | WPDANESPN ---
Anes - Prog Note Post-Op Date/Time: 02/15/24 14:35 Cardiovascular status: normal Respiratory status: normal Airway patency: baseline Mental status: baseline Post-Op hydration status: normal Vital Signs: Last Vital Signs Temp 36.1 C L 02/15/24 12:12 Pulse 87 02/15/24 12:12 Resp 18 02/15/24 12:12 BP 134/47 L 02/15/24 12:12 Pulse Ox 97 02/15/24 12:12 O2 Del Method Room Air 02/14/24 20:00 O2 Flow Rate 2 02/14/24 10:26 Pain Score (VAS): 10/10 I/O: Intake & Output 02/14/24 02/15/24 02/15/24 23:59 07:59 15:59 Intake Total 290 300 476 Output Total 300 800 600 Balance -10 -500 -124 Laboratory Tests 02/15/24 05:30 02/15/24 05:30 02/14/24 02/14/24 02/14/24 14:51 16:27 18:14 WBC RBC Hgb Hct MCV MCH MCHC RDW Plt Count MPV Immature Gran % (Auto) Neut % (Auto) Lymph % (Auto) [place] % (Auto) Eos % (Auto) Baso % (Auto) Lymph # (Auto) [place] # (Auto) Eos # (Auto) Baso # (Auto) Abs Immat Gran (auto) Absolute Neuts (auto) Absolute Nucleated RBC Nucleated RBC % Sodium Potassium Chloride Carbon Dioxide Anion Gap BUN Creatinine Estim Creat Clear Calc Estimated GFR Glucose POC Capillary Glucose 241 H 221 H 275 H Calcium 02/14/24 02/14/24 02/15/24 19:56 23:44 05:13 WBC RBC Hgb Hct MCV MCH MCHC RDW Plt Count MPV Immature Gran % (Auto) Neut % (Auto) Lymph % (Auto) [place] % (Auto) Eos % (Auto) Baso % (Auto) Lymph # (Auto) [place] # (Auto) Eos # (Auto) Baso # (Auto) Abs Immat Gran (auto) Absolute Neuts (auto) Absolute Nucleated RBC Nucleated RBC % Sodium Potassium Chloride Carbon Dioxide Anion Gap BUN Creatinine Estim Creat Clear Calc Estimated GFR Glucose POC Capillary Glucose 249 H 211 H 171 H Calcium 08/15/24 08/15/24 08/15/24 05:30 07:30 11:30 WBC 12.2 H RBC 4.20 Hgb 13.3 Hct 40.9 MCV 97.4 MCH 31.7 MCHC 32.5 RDW 12.7 Plt Count 243 MPV 11.1 H Immature Gran % (Auto) 0.4 Neut % (Auto) 63.6 Lymph % (Auto) 19.0 [place] % (Auto) 16.1 H Eos % (Auto) 0.3 Baso % (Auto) 0.6 Lymph # (Auto) 2.31 [place] # (Auto) 2.0 H Eos # (Auto) 0.0 Baso # (Auto) 0.1 Abs Immat Gran (auto) 0.05 H Absolute Neuts (auto) 7.7 H Absolute Nucleated RBC 0.000 Nucleated RBC % 0.0 Sodium 138 Potassium 4.1 Chloride 104 Carbon Dioxide 27 Anion Gap 7 BUN 18 H Creatinine 0.80 Estim Creat Clear Calc 59 Estimated GFR > 60 Glucose 174 H POC Capillary Glucose 171 H 206 H Calcium 8.9 Post-procedural complaints: nausea Patient Feedback: Patient satisfied with anesthetic care.
--- NOTE | 2024-02-15 15:01 | PM.EVENT ---
Event Note Event Note Event Note: Spoke with patient and family in great length about her diabetes and monitoring. As reported by family and patient she is not monitoring her BS at home and since starting Faxiga she is having episodes of hypoglycemia in the middle of the night if she forgets to eat a snack. Last A1c 6..8. recommended patient switch to daily dose of insulin 30-45 prior to her first meal of the day since she frequently skips breakfast. I also recommended she start checking her BS 4 times daily and keeping a log. reviewed diet recommendations as well. She will need follow-up with PCP, patient would likely benefit from dexcom for monitoring and possible weekly medication such as Ozempic, Trulicity, Wegovy, etc. due to medication compliance.
--- NOTE | 2024-02-16 11:27 | PCCDE ---
Spoke to Collette at Dr. Duarte's office. Recommended orders for Dexcom, OP DSMT and CGM training.
== END 2024-02-15 15:05 | disposition home or self-care (01) ==
LOC: ANHSURGERY 05:51 → ANH3MEDSUR 10:29
PROVIDERS: Orthopaedic Surgery; PCP Nurse Practitioner; Visit Provider Nurse Practitioner Family
PROC: (CPT 27447; principal; 2024-02-14 07:30)
DX: M17.12 Unilateral primary osteoarthritis, left knee (principal); I10 Essential (primary) hypertension; E16.2 Hypoglycemia, unspecified; I95.1 Orthostatic hypotension; E78.2 Mixed hyperlipidemia; E11.9 Type 2 diabetes mellitus without complications; R01.1 Cardiac murmur, unspecified; E66.9 Obesity, unspecified; Z68.38 Body mass index [BMI] 38.0-38.9, adult; Z79.4 Long term (current) use of insulin; Z79.01 Long term (current) use of anticoagulants; Z98.890 Other specified postprocedural states; Z80.0 Family history of malignant neoplasm of digestive organs; Z82.49 Family history of ischemic heart disease and other diseases of the circulatory system
CPT/HCPCS: 27447; 36415; 73560; 80048; 82948; 85025; 97110; 97116; 97161; 97165; 97530; 97535; A9270; C1713; C1776; J0171; J0690; J1100; J1170; J1815; J1885; J2270; J2405; J2704; J2795; J3010; J3370; J7120

== ENCOUNTER 2024-03-27 13:30 | Outpatient (RCR) | payer MEDICARE, SELFPAY ==
--- NOTE | 2024-02-19 17:57 | OPREHPOC ---
Outpatient Therapy Plan of Care This is a Multidisciplinary Plan of Care that may contain components documented by all disciplines (PT, OT, and ST.) PT Problem 1 PT Problem #1 Knowledge Deficit PT Goal 1 Goal / Goal Update Mckean with HEP Target Visit 4 PT Goal 2 Goal / Goal Update Demonstrate 2cm+ reduction in joint line edema for soft tissue healing Target Visit 10 PT Problem 2 PT Problem #2 Pain PT Goal 1 Goal / Goal Update Report no pain greater than 2/10 with knee flexion Target Visit 10 PT Problem 3 PT Problem #3 Impaired Range of Motion PT Goal 1 Goal / Goal Update Achieve terminal L knee extension for even stride Target Visit 10 PT Goal 2 Goal / Goal Update Achieve L knee flexion of 125 degrees for improved ADL foot clearence Target Visit 10 PT Problem 4 PT Problem #4 Impaired Gait PT Goal 1 Goal / Goal Update Ambulate independent of AD with no lateral deviation Target Visit 10
--- NOTE | 2024-02-19 17:57 | PTOPEVAL1 ---
Assessment and note entered by Yordy Villarreal, PT Evaluation Information Assessment Status Evaluation Diagnosis Left Knee Arthroplasty ICD-10 Condition Codes (PT) Pain in left knee M25.562 Onset 02/14/24 Subjective Information Reports that she was having issues for about a year prior to surgery. She walked about a mile and a half everyday and got to a point in which she could no longer do that. Pain is mostly in the anterior knee and thigh. She does have some discomfort in her left right lateral hip. 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 Gets a lot of throbbing and pain at night. She is taking pain pills consistently every 4 hours. She was using a walker sporadically prior to operation, but would like to get off of the walker. Reported Pain Level Pain Score 6: Self Report Assessment PT Clinical Summary Patient presents with signs and symptoms typical of Left TKA. Patient currently limited in edema, knee ROM, and gross LE strength. 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 Plan of Care Interventions Gait Training,Manual Therapy,Neuro Re-education, Therapeutic Activities,Therapeutic Exercise PT Services Indicated Yes Treatment Frequency and 2x/week for 10 visits Duration These treatments will address the objective and functional deficits as defined above. The patient will be advanced safely and appropriately in order for the patient to progress towards his/her prior level of function. Additional exercises will be introduced and as well as a comprehensive home exercise program upon discharge, if needed, ?to ensure carryover of functional gains achieved in the clinic. This treatment plan has been reviewed and agreement upon by the patient.
--- NOTE | 2024-03-27 14:32 | PTOPDC ---
Assessment and note entered by Ciera El, PT Discharge Report Assessment Status Discharge Diagnosis Left Knee Arthroplasty ICD-10 Condition Codes (PT) Pain in left knee M25.562 Onset 02/14/24 Subjective Information knee is stronger; have been the exercises at home have not been using the cane or walker, but had to use the walker yesterday with walking a long ways at the [facility]; to see dr tomorrow have not been to the grocery store yet; wants to be done with therapy and keep up the exercises at home; Reported Pain Level Pain Score Self Report Additional Pain Score Comments pain range in the past week of 0-8/10; sharp pain to 8/10 that last only few seconds over medial and lateral joint line; decrease pain: sit, rest, elevation, rub knee, tylenol at night increase pain: more walking and actiivty, after about 1 hour have kulwant horses in calf and use muscle cream sleep is sometimes disrupted: charley horse or knee pain ~ 1x/night; knee sensitive to sheets on knee; Assessment PT Clinical Summary Kassi has received a total of 10 PT sessions. Compared to the initial evaluation: she has improved in all areas since evaluation: decreased pain, increase ROM and strength of knee, decreased edema with circumferential measurement over joint line and improved mobility skills. With palpation, she has tenderness over medial joint and medial-distal hamstring. Education completed for HEP. L knee ROM (-5') to 105'. Good gait pattern without assistive device. She is performing all her home and self care activities, but not yet walking for fitness at the park. Discharge PT services. It was emphasized to her to continue her HEP and stretching her knee flexion and extension to obtain more range as her swelling decreases. She requests to be done with therapy at this time. Plan of Care PT Services Indicated No
== END 2024-03-27 16:32 | disposition home or self-care (01) ==
LOC: ANHPT 13:30
PROVIDERS: PCP Nurse Practitioner; Visit Provider Orthopaedic Surgery
DX: Z47.1 Aftercare following joint replacement surgery (principal); Z96.652 Presence of left artificial knee joint
CPT/HCPCS: 97016; 97110; 97116; 97140; 97161; 97530

== ENCOUNTER 2024-04-25 14:15 | Outpatient (RCR) | payer MEDICARE, SELFPAY | END 2024-06-03 10:51 | disposition home or self-care (01) | LOC: ANHDMC 14:15 | PROVIDERS: PCP Nurse Practitioner; Visit Provider Internal Medicine | DX: E11.9 Type 2 diabetes mellitus without complications (principal); Z71.89 Other specified counseling; Z79.4 Long term (current) use of insulin | CPT/HCPCS: 95249; G0108 ==

== ENCOUNTER 2024-05-28 07:32 | Outpatient (CLI) | payer MEDICARE, SELFPAY ==
[2024-05-28 08:24] LABS: Alanine Aminotransferase 16 U/L (6-35); Albumin Level 4.2 g/dL (3.5-5.1); Alkaline Phosphatase 96 U/L (38-126); Anion Gap 4 mmol/L (4-12); Aspartate Amino Transferase 19 U/L (14-36); Bilirubin,Total 0.7 mg/dL (0.2-1.3); Blood Urea Nitrogen 13 mg/dL (7-17); Calcium 9.1 mg/dL (8.4-10.2); Carbon Dioxide 30 mmol/L (22-30); Chloride 105 mmol/L (98-107); Cholesterol 146 mg/dL (0-200); Estimated Glomerular Filt Rate > 60; Glucose 171 mg/dL (65-110); HDL Direct 45 mg/dL; Potassium 4.6 mmol/L (3.4-5.0); Sodium 139 mmol/L (137-145); Triglycerides 167 mg/dL (<150)
[2024-05-28 08:35] LABS: LDL Cholesterol Direct 54 mg/dL
[2024-05-28 08:36] LABS: Hemoglobin A1C 7.1 % (<5.7)
== END 2024-05-28 07:33 | disposition home or self-care (01) ==
LOC: ANHLAB 07:36
PROVIDERS: PCP Nurse Practitioner; Visit Provider Nurse Practitioner
DX: E78.5 Hyperlipidemia, unspecified (principal); E11.9 Type 2 diabetes mellitus without complications
CPT/HCPCS: 36415; 80053; 80061; 83036

== ENCOUNTER 2024-11-21 06:47 | Outpatient (CLI) | payer MEDICARE, SELFPAY ==
--- OUTSIDE RECORDS SUMMARY | 2024-11-21 06:52 | XMS_ITS | Continuity of Care Document ---
Author [facility] Address [address] [place] [address] [address] [place] [address] Phone Care Team Providers Care Sign Artist Name Role Phone Mey STEWART MD, Aaron Unavailable Unavailable Allergies, Adverse Reactions, Alerts Substance Reaction Status Criticality Sulfa (Sulfonamide Antibiotics) Active No Information Medications Medication Instructions Dosage Effective Dates (start - stop) Status Comments lisinopril 2.5 mg tablet take 1 tablet by oral route every day 2.5 MG - Active Procedures Procedure Date YAG PC AFTER CATARACT LASER SURGERY EYE EXAM & TREATMENT DILATED EXAM RIGHT EYE DILATED EXAM LEFT EYE CATARACT SURG W/IOL, 1 STAGE CATARACT SURG W/IOL, 1 STAGE EYE EXAM, NEW PATIENT OPHTHALMIC BIOMETRY OPHTHALMIC BIOMETRY DILATED EXAM RIGHT EYE DILATED EXAM LEFT EYE Advance Directives Directive Yes / No Effective Date File Name No Information Encounters Encounter Description Practice Location Reason(s) For Visit Diagnoses Date Provider Providers Copied on Encounter [facility], [address] [place] [address], [id number], tel:[phone] [facility] No Information Ramón Walker. [address] , [address], [place], [place], [id number] , [place]. tel:[phone] Referring Provider: Aaron Eagle, [address], [place], [address] . tel:[phone] [facility], [id number] [place] [address], [id number], tel:[phone] [facility] blurry vision (chief complaint) After-catarac t with vision obscured, bilateralKera titis sicca, bilateralFloa ters, bilateralType 2 diabetes w/o complicationD ermatochalasi s of left upper eyelidDermato chalasis of right upper eyelid 7 Mey Walker. [address], [address], [place], [place], [id number] , [place]. tel:[phone] Referring Provider: Aaron Eagle, [address], [place], [address] . tel:[phone] [facility], [address] [place] [address], [id number], tel:[phone] [facility] No Information 6 Mey Walker. [address], [place], [place], [id number] , [place]. [phone] Referring Provider: Aaron Eagle, [address], [place], [address] . tel:[phone] [facility], [address] [place] [address], [id number], [place] tel:[phone] [facility] No Information 6 Mey Walker. [address], [place], [place], [id number] , [place]. [phone] Referring Provider: Aaron Eagle, [address], [place], [address] . tel:[phone] [facility], [address] [place] [address], [id number], [place] tel:[phone] [facility] No Information 6 Mey Walker. [address], [id number] , . tel: [phone] Referring Provider: Aaron Mathias MD P, [address], [place], [address] . tel:[phone] Family History Family Member Type Diagnosis Age At Onset Problem (finding) No family history of Gl aucoma Problem (finding) No family hist ory of Macular degeneration Problem (finding) No family history of Hy pertension Father Problem (finding) Diabetes mellitus Payers Payer name Insurance type Covered constitution party ID Authoriza tion(s) [place] [id number] [facility] [id number] Social History Type Description Quantity Date Captured Comments Sex Female Smoking Status No Information Chief Complaint And Reason For Visit No Information Reason For Referral Reason For Referral No Information History Of Present Illness Encounter Date Complaint History Of Prese nt Illness blurry vision The 71 year old female presents for evaluation of blurry vision in the right eye and left eye. It started about 2 month(s) ago. The condition is significant. Pt C/O blurred vision at distance and near. Pt is having trouble with seeing street signs and glare at night when driving. Pt has noticed trouble seeing the TV and recently had new glasses made. Pt still having trouble with vision and was told by Dr. Wong at [facility] that she may need a Yag PC performed vs increasing power in glasses. Pt has DM and last A1C was 7.9. Avg BS 90-120. Functional Status Date Functional Assessmen t No Information Instructions Date Instruction Additional Infor farhation Impression/Plan - Th ere is no evidence of retinal pathology. All signs and risks of retinal detachment and tears were discussed in detail. Patient instructed to call office immediately if any symptoms noted. Related to Floaters, bilateral Impression/Plan - No background retinopathy, no signs of neovascularization noted. Discussed ocular and systemic benefits of blood sugar control. Related to Type 2 diabetes w/o complication Impression/Plan - No treatment at this time Related to Dermatochalasis of left upper eyelid Impression/Plan - No treatment at this time Related to Dermatochalasis of right upper eyelid Impression/Plan - Di scussed diagnosis in detail with patient. Discussed treatment options with patient. Advised patient of condition. 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 Explained condition does not have a cure and will need artificial tears for maintenance. 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
--- OUTSIDE RECORDS SUMMARY | 2024-11-21 06:52 | XMS_ITS | Continuity of Care Document ---
Author Organization [facility] Address [address] [place] [address] Phone Care Team Providers Care Lacing String Cutter Name Role Phone Katherine Whitehead Unavailable Unavailable Advance Directives Directive Yes / No Effective Date File Name No Information Encounters Encounter Description Practice Location Reason(s) For Visit Diagnoses Date Provider Providers Copied on Encounter [facility], [address], [place], [place], [id number], [place] tel:[phone] [facility] No Information 1-200 0 Charley Murphy. [address] , [address], [place], [address], [place]. tel:[phone] Family History Family Member Type Diagnosis Age At Onset No Information Payers Payer name Insurance type Covered republican ID Authoriza tion(s) No Information Social History Type Description Quantity Date Captured Comments Sex Female Smoking Status No Information Chief Complaint And Reason For Visit No Information Reason For Referral Reason For Referral No Information History Of Present Illness Encounter Date Complaint History Of Prese nt Illness No Information Functional Status Date Functional Assessmen t No Information Instructions Date Instruction Additional Infor mation No Information Assessments Type Assessment Date No Information Patient Care Teams Name Effective Dates (start - stop) Status Members No Information
[2024-11-21 07:42] LABS: Alanine Aminotransferase 23 U/L (6-35); Albumin Level 4.2 g/dL (3.5-5.1); Alkaline Phosphatase 90 U/L (38-126); Anion Gap 7 mmol/L (4-12); Aspartate Amino Transferase 25 U/L (14-36); Bilirubin,Total 0.7 mg/dL (0.2-1.3); Blood Urea Nitrogen 17 mg/dL (7-17); Calcium 9.2 mg/dL (8.4-10.2); Carbon Dioxide 27 mmol/L (22-30); Chloride 105 mmol/L (98-107); Cholesterol 147 mg/dL (0-200); Estimated Glomerular Filt Rate > 60; Glucose 175 mg/dL (65-110); HDL Direct 49 mg/dL; Potassium 4.2 mmol/L (3.4-5.0); Sodium 139 mmol/L (137-145); Triglycerides 177 mg/dL (<150)
[2024-11-21 07:53] LABS: LDL Cholesterol Direct 52 mg/dL
[2024-11-21 09:02] LABS: Hemoglobin A1C 7.1 % (<5.7)
[2024-11-21 11:59] LABS: Creatinine Urine 43.2 mg/dL
[2024-11-21 12:05] LABS: MALB Creatinine Ratio 21.5 mg/g (0-30); Microalbumin Urine Random 9.3 mg/L (0-16.7)
== END 2024-11-21 06:48 | disposition home or self-care (01) ==
PROVIDERS: PCP Internal Medicine; Visit Provider Nurse Practitioner
DX: E78.5 Hyperlipidemia, unspecified (principal); E11.9 Type 2 diabetes mellitus without complications; Z79.4 Long term (current) use of insulin
CPT/HCPCS: 36415; 80053; 80061; 82043; 83036